=== PATIENT | female | born 1940 | race Caucasian/White ===

== ENCOUNTER → 2016-03-16 | Outpatient (CLI) | payer OTHER, BC | LOC: BHFA 10:00 | PROVIDERS: ATTEND Internal Medicine Interventional Cardiology | DX: R06.09 Other forms of dyspnea (principal); Z86.79 Personal history of other diseases of the circulatory system ==

== ENCOUNTER → 2016-04-18 | Outpatient (CLI) | payer OTHER, BC | LOC: BHFA 08:30 | PROVIDERS: ATTEND Internal Medicine Cardiovascular Disease | DX: R06.02 Shortness of breath (principal); R68.89 Other general symptoms and signs | CPT/HCPCS: 78452; 93017; A9500; J2785 ==

== ENCOUNTER → 2016-06-19 | Outpatient (CLI) | payer OTHER, BC ==
[~2016-06-19] MED LIST: IOPAMIDOL (ISOVUE 370) 100 ML BTL IV ONE
[2016-06-19 15:22] LABS: CREATININE 0.9 mg/dL (0.6-1.0); GLOMERULAR FILTRATION RATE > 60
== END ==
LOC: FIMAGING 14:38
PROVIDERS: ATTEND Internal Medicine Critical Care Medicine
DX: R06.02 Shortness of breath (principal)
CPT/HCPCS: 71275; Q9967

== ENCOUNTER 2017-07-07 19:01 | Observation (INO) | payer OTHER, BC ==
--- NOTE | 2017-07-07 19:13 | CPEKG ---
Heart Rate: 75 RR Interval: 800 P-R Interval: 196 QRSD Interval: 74 QT Interval: 420 QTC Interval: 470 P [place]: -54 QRS [place]: -15 T Wave [place]: 39 EKG Severity - OTHERWISE NORMAL ECG - EKG Impression: SINUS OR ECTOPIC ATRIAL RHYTHM EKG Impression: BORDERLINE LEFT AXIS DEVIATION Electronically Signed By: Haleigh Delcid 07-Jul-2017 23:14:02
[2017-07-07] MEDS ORDERED: NS 500 ML IV ONE (19:17)
[2017-07-07 19:30] LABS: PLATELET COUNT 188 10^3/uL (150-400)
[2017-07-07 19:42] LABS: CREATINE KINASE 85 IU/L (0-156)
--- NOTE | 2017-07-07 19:56 | EDPHY ---
H & P Time Seen by Provider: 07/07/17 19:16 HPI/ROS: HPI Lightheaded. 76-year-old female by private vehicle with her . This patient reports that she was watching TV earlier this afternoon at 4-5 p.m.. She reports that she noticed that she was feeling very lightheaded and faint. Denies vertigo. Reports that when she would try to stand and walk she would have problems with her balance and feel like she was going to faint. She had some mild nausea associated with this but no vomiting. Denies chest pain, palpitations, shortness of breath. No headache. No loss of sensation or weakness in her extremities. ROS: Constitutional: No fever, no chills. As above. Eyes: No discharge. No changes in vision. ENT: No sore throat. No nasal congestion or rhinorrhea. Respiratory: No cough. No shortness of breath. Cardiac: No chest pain, no palpitations. Gastrointestinal: No abdominal pain, no vomiting, no diarrhea. Genitourinary: No hematuria. No dysuria or increased frequency with urination. Musculoskeletal: No back pain. No neck pain. No myalgias or arthralgias. Skin: No rashes. Neurological: No headache. No focal weakness or altered sensation. Past medical history: Rheumatic heart disease, Kawasaki, ruptured appendicitis with appendectomy, inguinal hernia. Medications include estrogen replacement therapy and hydroxyzine. No new medications. Social history: Nonsmoker. Lives with her who is present in the emergency department. No alcohol. Physical Exam: General Appearance: Alert, no distress. This patient is responding to questions appropriately and in full sentences. This patient appears well- hydrated and well-nourished. Eyes: Pupils equal and round at 3-2 mm bilaterally, no pallor or injection. No lid edema, erythema or injection. No nystagmus. No photophobia. Respiratory: There are no retractions, lungs are clear to auscultation with good air movement bilaterally. Cardiovascular: Regular rate and rhythm. No murmur. Gastrointestinal: Abdomen is soft and nontender, no masses, bowel sounds normal. No focal tenderness at McBurney's point. No Morgan sign. Neurological: Motor sensory function is grossly intact. Cranial nerves are normal. Cerebellar function is intact. Skin: Warm and dry, no rashes. Musculoskeletal: Neck is supple and nontender. Extremities are symmetrical. All joints range without pain or impingement. Psychiatric: No agitation. No depression. Database: EKG: EKG time is 7:11 p.m.; EKG shows a narrow complex normal sinus rhythm with a ventricular rate of 75. The [place], QRS, QT intervals are within normal limits. Borderline left axis deviation. There are no ST-T wave changes indicative of ischemic or injury pattern. No evidence of right heart strain. Interpreted by me. Imaging: CT scan of head without contrast: Age-related changes only. No acute pathology. Results were discussed with staff radiologist Dr. Geronimo Neumann. CT angiogram of head and neck: Negative. Results were discussed with staff radiologist Dr. Geronimo Neumann. Procedures: Emergency department course: Triage vital signs reviewed. She is moderately hypertensive. Vital signs are otherwise normal. An IV was established. She was started on IV normal saline with 500 cc to be given over the next hour. EKG obtained and reviewed by myself. 8:45 p.m., the patient has returned from CT. We got her up to ambulate her. At this time her gait was ataxic. She would sometimes list to the left sometimes to the right. She again describes her feeling as being lightheaded. Her vital signs have remained normal. There is concern for possible cerebellar stroke. She was sent for CT angiogram of the head and the neck. The tree and shrub technician are not here at this time. Patient consents. 9:30 p.m., no change in the patient's neurologic status. Results of CT angiogram and plan for admission discussed with her and her . Hospitalist paged. 9:45 p.m., discussed case with hospitalist Dr. Marie. The patient is not a tPA candidate at this time. MRI will be deferred to hospitalist. The patient was admitted to the hospitalist service in stable condition. She was admitted to the neuro floor. Differential Diagnosis: The differential diagnosis on this patient includes but is not limited to dehydration, vasovagal near syncope, arrhythmia, central versus peripheral vertigo. This represents a partial list of diagnoses considered. These considerations are based on history, physical exam, past history, reassessment and diagnostic testing. Smoking Status: Never smoked Constitutional: Initial Vital Signs Temperature (C) 36.6 C 07/07/17 19:03 Heart Rate 80 07/07/17 19:03 Respiratory Rate 18 07/07/17 19:03 Blood Pressure 155/81 H 07/07/17 19:03 O2 Sat (%) 97 07/07/17 19:03 O2 Delivery Mode Room Air Allergies/Adverse Reactions: hydrocodone [Hydrocodone] Allergy (Unknown, Verified 07/07/17 19:05) CAUSES EXTREME DIURESIS oxycodone [Oxycodone] Allergy (Unknown, Verified 07/07/17 19:05) EXTREME DIURESIS prochlorperazine [Prochlorperazine] Allergy (Unknown, Verified 07/07/17 19:05) INC. HR ENLARGED PUPILS tramadol Allergy (Verified 07/07/17 19:05) Home Medications: Medication Instructions Recorded Estrogens, Conjugated [Premarin] 0.9 mg PO HS 07/07/17 Herbals/Supplements -Info Only 1 ea PO DAILY 07/07/17 hydrOXYzine HCL [hydrOXYzine HCL 25 mg PO HS 07/07/17 (RX)] medroxyPROGESTERone [Provera 10 mg 10 mg PO HS 07/07/17 (*)] Medical Decision Making - Data Points Laboratory Results: Laboratory Results 07/07/17 19:24 07/07/17 19:24 Medications Given: Hydroxyzine HCl (Hydroxyzine Hcl) 25 mg PO HS PRN PRN Reason: Sleep/Insomnia Stop: 01/03/18 23:27 Last Admin: 07/07/17 23:47 Dose: 25 mg Discontinued Medications Sodium Chloride (Ns) 500 mls @ 1,000 mls/hr IV EDNOW ONE PRN Reason: Protocol Stop: 07/07/17 19:46 Last Admin: 07/07/17 19:28 Dose: 500 mls Departure - Departure Disposition: [facility] Acute Clinical Impression: Lightheaded, Ataxia, Dehydration
[2017-07-07] MEDS ORDERED: IOPAMIDOL (ISOVUE 370) 100 ML BTL IV ONE (21:14)
[2017-07-07] MEDS ORDERED: ONDANSETRON DISINTEGRATING 4 MG TAB PO PRN (22:28)
[2017-07-07] MEDS ORDERED: ACETAMINOPHEN 325 MG TAB PO PRN (22:28)
[2017-07-07] MEDS ORDERED: ONDANSETRON 4 MG/2 ML VIAL IVP PRN (22:28)
[2017-07-07] MEDS ORDERED: hydrOXYzine HCL 25 MG TAB PO PRN (23:28)
--- NOTE | 2017-07-08 00:08 | PDGENHP ---
History and Physical - Chief Complaint Unsteady gait - History of Present Illness 76 yo F w/ hx of rheumatic heart disease p/w unsteady gait. Patient tells me she worked hard this morning mowing her lawn. Then this afternoon she was sitting in her house watching TV. When she stood up she noticed a significantly unsteady gait. This persisted for several hours so she presented to the ED. She denies other neurologic symptoms such as LOC, numbness, weakness, and visual disturbance. In the ED initial evaluation has been unremarkable, including CT, CTA head/neck. She is being admitted for monitoring, conclusion of stroke work- up, and PT/OT evaluations. History Information - Allergies/Home Medication List Allergies/Adverse Reactions: hydrocodone [Hydrocodone] Allergy (Unknown, Verified 07/07/17 19:05) CAUSES EXTREME DIURESIS oxycodone [Oxycodone] Allergy (Unknown, Verified 07/07/17 19:05) EXTREME DIURESIS prochlorperazine [Prochlorperazine] Allergy (Unknown, Verified 07/07/17 19:05) INC. HR ENLARGED PUPILS tramadol Allergy (Verified 07/07/17 19:05) Home Medications: Estrogens, Conjugated [Premarin] 0.9 mg PO HS 07/07/17 [Last Taken 07/06/17] Herbals/Supplements -Info Only 1 ea PO DAILY 07/07/17 [Last Taken Unknown] hydrOXYzine HCL [hydrOXYzine HCL (RX)] 25 mg PO HS 07/07/17 [Last Taken 07/06/17 ] medroxyPROGESTERone [Provera 10 mg (*)] 10 mg PO HS 07/07/17 [Last Taken ] I have personally reviewed and updated: family history, medical history - Past Medical History Additional medical history: Rheumatic heart disease - Surgical History Additional surgical history: Distant surgery to remove ruptured ovarian cyst. - Family History Additional family history: Asked, denies - Social History Smoking Status: Never smoked Alcohol Use: None Review of Systems Review of Systems: ROS: 10pt was reviewed & negative except for what was stated in HPI & below Physical Exam Physical Exam: Temp Pulse Resp BP Pulse Ox 36.6 C 80 20 147/71 H 97 07/07/17 19:03 07/07/17 23:05 07/07/17 23:05 07/07/17 23:05 07/07/17 23:05 Constitutional: no apparent distress, not in pain Eyes: PERRL, EOMI Ears, Nose, Mouth, Throat: moist mucous membranes, no oral mucosal ulcers Cardiovascular: regular rate and rhythym, systolic murmur Respiratory: no respiratory distress, clear to auscultation Gastrointestinal: normoactive bowel sounds, soft, non-tender abdomen Genitourinary: no bladder fullness, no bladder tenderness Skin: warm, normal color Neurologic: AAOx3, CN II-XII Intact, other (Finger to nose, heel to torres normal) , No weakness, No numbness, No facial droop Psychiatric: interacting appropriately, not anxious Lab Data & Imaging Review 07/07/17 19:24 07/07/17 19:24 WBC 5.79 10^3/uL (3.80-9.50) 07/07/17 19:24 RBC 3.73 10^6/uL (4.18-5.33) L 07/07/17 19:24 Hgb 11.7 g/dL (12.6-16.3) L 07/07/17 19:24 Hct 35.3 % (38.0-47.0) L 07/07/17 19:24 MCV 94.6 fL (81.5-99.8) 07/07/17 19:24 MCH 31.4 pg (27.9-34.1) 07/07/17 19:24 MCHC 33.1 g/dL (32.4-36.7) 07/07/17 19:24 RDW 13.5 % (11.5-15.2) 07/07/17 19:24 Plt Count 188 10^3/uL (150-400) 07/07/17 19:24 MPV 8.7 fL (8.7-11.7) 07/07/17 19:24 Neut % (Auto) 59.7 % (39.3-74.2) 07/07/17 19: Lymph % (Auto) 23.0 % (15.0-45.0) 07/07/17 19:24 Hall % (Auto) 10.5 % (4.5-13.0) 07/07/17 19:24 Eos % (Auto) 5.0 % (0.6-7.6) 07/07/17 19:24 Baso % (Auto) 1.6 % (0.3-1.7) 07/07/17 19:24 Nucleat RBC Rel Count 0.0 % (0.0-0.2) 07/07/17 19:24 Absolute Neuts (auto) 3.46 10^3/uL (1.70-6.50) 07/07/17 19:24 Absolute Lymphs (auto) 1.33 10^3/uL (1.00-3.00) 07/07/17 19:24 Absolute Monos (auto) 0.61 10^3/uL (0.30-0.80) 07/07/17 19:24 Absolute Eos (auto) 0.29 10^3/uL (0.03-0.40) 07/07/17 19:24 Absolute Basos (auto) 0.09 10^3/uL (0.02-0.10) 07/07/17 19: Absolute Nucleated RBC 0.00 10^3/uL (0-0.01) 07/07/17 19:24 Immature Gran % 0.2 % (0.0-1.1) 07/07/17 19:24 Immature Gran # 0.01 10^3/uL (0.00-0.10) 07/07/17 19:24 Sodium 138 mEq/L (135-145) 07/07/17 19:24 Potassium 3.6 mEq/L (3.3-5.0) 07/07/17 19:24 Chloride 108 mEq/L (97-110) 07/07/17 19:24 Carbon Dioxide 20 mEq/l (22-31) L 07/07/17 19:24 Anion Gap 10 mEq/L (8-16) 07/07/17 19:24 BUN 24 mg/dL (7-23) H 07/07/17 19:24 Creatinine 0.8 mg/dL (0.6-1.0) 07/07/17 19:24 Estimated GFR > 60 07/07/17 19:24 Glucose 127 mg/dL (70-100) H 07/07/17 19:24 Calcium 8.1 mg/dL (8.5-10.4) L 07/07/17 19:24 Creatine Kinase 85 IU/L (0-156) 07/07/17 19:24 CK-MB (CK-2) Fraction 1.50 ng/mL (0.00-3.19) 07/07/17 19:24 Troponin I < 0.012 ng/mL (0.000-0.034) 07/07/17 19:24 Imaging Review: Imaging Impressions Head CT 07/07/17 19:50 Impression: 1. Negative. No acute intracranial hemorrhage or evidence of acute ischemia. 2. White matter disease and atrophy are unchanged since January 2016. Findings discussed with Emergency Department physician, Dr. Haleigh Delcid on July 07, 2017 at 2054 hours. Head CTA 07/07/17 21:11 Impression: 1. Normal intracranial arterial circulation. No evidence of embolic disease or aneurysm. 2. Patent venous system. Results were communicated to Emergency Department physician, Haleigh Delcid MD at 07/07/2017 22:24. Neck CTA 07/07/17 21:11 Impression: Widely patent carotid and vertebral arteries. No flow-limiting stenosis, dissection or occlusion. Findings discussed with Emergency Department physician, Haleigh Delcid MD at 07/07/2017 22:24. Measurement of carotid stenosis is based on the residual internal carotid diameter with [place] Symptomatic Carotid Endarterectomy Trial (NASCET) based stenosis levels. Visualized and Interpreted EKG results: Yes EKG Interpretation: Positive for: normal sinsus rhythm Assessment & Plan Assessment: 76 yo F w/ rheumatic heart disease p/w unsteady gait. Plan: 1. Ataxia - Unclear etiology; acuity of onset and persistence of symptoms raised suspicion for posterior circulation stroke. Evaluation thus far for this has been negative but MRI and TTE remain. Noting she worked hard this morning mowing her lawn, dehydration and fatigue could also be contributing. She denies other neurologic symptoms at this time. - Admit for observation - MRI, TTE to finish stroke work-up - S/p 500 mL NS - Monitor on telemetry - PT/OT/ENERGY CONSERVATION DIRECTOR evaluations - Neurology consult placed - Discussed case w/ Dr. Delcid 2. Rheumatic heart disease - No acute complications from this. Diet - Regular pending swallow eval Code - Full Ppx - SCDs Dispo - Admit under observation status
[2017-07-08 05:33] LABS: PLATELET COUNT 222 10^3/uL (150-400)
--- NOTE | 2017-07-08 10:06 | NEUROPROG ---
Assessment: HOSPITAL NEUROLOGY CONSULT REQUESTING: Wilman Marie MD REASON: gait instability HPI: 76 year old right-handed woman with a history of rheumatic heart disease presented to our ED yesterday with lightheadedness and gait trouble. Patient states that yesterday morning she was doing some weeding in her yard and for a neighbor and then mowed her law. She states "I worked very hard pushing the mower around." She was rushing to beat the rain. She was feeling a bit overheated. She finished her yard work and then after having a rest she stood up and felt very lightheaded, like she was going to pass out. When she was walking around feeling lightheaded, she felt she was unsteady in her gait. She notes sitting down improved her symptoms. This was worrisome, so she asked a friend to drive her to the ED. She was not having any SOB, CP, palpitations. No focal/lateralizing neurologic signs/symptoms - no room-spinning, vision loss, double vision, weakness, sensory loss, speech/language changes. She was screened for cardiac ischemia in the ED with negative troponin and EKG without ischemic change. She was found to be dehydrated on labs with an elevated BUN/ Cr ratio. She was admitted for further evaluation and observation. She was hydrated with IVF and encouraged to increase PO intake. Her BUN/Cr ratio has now decreased and she feels back to baseline. ROS: As per the HPI, otherwise a complete 12 point ROS was performed and is negative ALLERGIES AND MEDS: As recorded in the EMR - reviewed and reconciled PFSH: As per the intake H&P by Dr. Marie from yesterday. EXAM: VS reviewed in EMR GEN: WDWN laying in NAD HEENT: NCAT, sclera anicteric, conjunctiva not injected, MMM, oropharynx clear, no scalp tenderness NECK: supple, nontender, no meningismus CV: RRR s1 s2 with systolic murmur best at LLSB. Carotid pulses 2+ wo bruit NEURO: MS: awake, alert, oriented to all spheres. She is a bit impulsive, getting up despite chair alarm and being connected to monitors, despite repeated warning of such. Speech nondysarthric. No language disturbance. Follows commands. Attends to both sides. Recent/remote memory grossly intact. Mood euthymic. Good fund of knowledge. CN: pupils 3mm round and reactive. Intolerant of fundoscopy. VFF. Primary gaze centered. Full ocular motility. Facial sensation preserved. Face symmetric. Hearing grossly intact to finger rub. Palatoglossal movements intact. Shoulder shrug and head turn strong. MOTOR: normal bulk/tone. Fine/fast resting tremor of both hands. Full power throughout. SENSORY: diminsihed vib/JPS in great toes, otherwise intact to all modalities. No extinction. COORD: no ataxia FN/HS. Jean-Pierre preserved. Romberg pos. REFLEX: plantars down. No clonus. Absent ankle jerks, other DTRS 1/4. GAIT: rises unassisted. Narrow base. Intact stride length/heel strike/toe lift /arm swing. Turns with 2 steps. Unable to tandem. DATA REVIEW: Labs reviewed in EMR PERSONALLY INTERPRETED RESULTS AND DATA: CT head wo - global volume loss and white matter signal attenuation consistent with chronic microvascular ischemia - nothing acute CTA head/neck - no stenotic lesions of the vessels IMPRESSION AND RECOMMENDATIONS: // PRESYNCOPE - RESOLVED // ORTHOSTATIC INTOLERANCE - RESOLVED // DEHYDRATION - RESOLVED Patient with orthostatic lightheadedness and resultant gait instability after working in her yard all morning with lab evidence of dehydration. Symptoms have resolved with hydration overnight. Clinical picture is consistent with orthostatic hypotension from dehydration. No focal/lateralizing signs/ symptoms. Neuro exam without focal deficit today. Recommend continued hydration measures. Further medical management per primary team. I don't see an indication for MRI - I don't suspect this was from a primary neurologic/central/ischemic process. PT/OT for home safety/gait safety. She can be discharged from a neuro perspective and follow up with PCP for further monitoring of hydration status and BP/orthostatic vitals. Objective: Vital Signs Temp Pulse Resp BP Pulse Ox 37.1 C 91 20 139/83 H 99 07/08/17 07:49 07/08/17 07:49 07/08/17 07:49 07/08/17 07:49 07/08/17 07:49 Laboratory Results 07/08/17 04:50 07/08/17 04:50 07/07/17 07/08/17 07/09/17 05:59 05:59 05:59 Intake Total 700 Output Total 500 Balance 200 Allergies/Adverse Reactions: hydrocodone [Hydrocodone] Allergy (Unknown, Verified 07/07/17 19:05) CAUSES EXTREME DIURESIS oxycodone [Oxycodone] Allergy (Unknown, Verified 07/07/17 19:05) EXTREME DIURESIS prochlorperazine [Prochlorperazine] Allergy (Unknown, Verified 07/07/17 19:05) INC. HR ENLARGED PUPILS tramadol Allergy (Verified 07/07/17 19:05)
[2017-07-08 11:36] VITALS: BP 136/76
--- NOTE | 2017-07-08 12:18 | ECHO ---
[email or web address] [address] [address] Main: [phone] Fax: Transthoracic Echocardiogram Name: TYSON BROWN MR#: [id number] Study Date: 07/08/2017 Study Time: 09:17 AM Date of : 1940 Age: 76 year(s) Height: 162.6 cm (64 in.) Weight: 46.27 kg (102 lb.) BSA: 1.47 m2 Gender: Female Examination: Echo Indication: ATAXIA, ?STROKE Image Quality: Adequate Contrast: Requested by: Wilman De Leon BP: / Heart Rate: Rhythm: Indication: ATAXIA, ?STROKE Procedure Staff Critical Care Physician: Kendal Smith RDCS Reading Physician: Chapin Eisenberg MD Requesting Provider: Conclusions: Normal size left ventricle. EF is 65 %. No regional wall motion abnormality. Diastolic dysfunction is present. . Mild mitral valve regurgitation is present. Mild tricuspid regurgitation is present. The pulmonary artery pressure is normal. Measurements: Chambers Valvular Assessment AV/MV Valvular Assessment TV/PV Normal Normal Normal Name Value Range Name Value Range Name Value Range Ao Gita (2D): 2.7 cm (1.4 cm-2.6 AV Vmax: 1.40 m/s (1 m/s-1.7 TR Vmax: 2.50 mm/s ( - ) cm) m/s) TR PGmax: 25 mmHg ( - ) IVSd (2D): 1.2 cm (0.6 cm-1.1 AV meanP mmHg ( - ) syst. PAP: 30 mmHg ( - ) cm) ELISHA (VTI): 1.9 cm ( - ) PV Vmax: 1.09 m/s (0.6 m/s-0.9 LVDd (2D): 3.2 cm (3.9 cm-5.3 MV E Vmax: 0.52 m/s ( - ) m/s) cm) MV A Vmax: 0.95 m/s ( - ) PV PGmax: 5 mmHg ( - ) LVDs (2D): 2.0 cm (2.1 cm-4 MV E/A: 0.55 ( - ) cm) MV PHT: 0.080 s ( - ) LVPWd (2D): 1.2 cm ( - ) MVA (PHT): 2.8 s ( - ) LVOTd 1.8 cm 1.8 cm mm LVEF (BP): 65 % (>=55 %) RVDd(2D): 2.8 cm (1.9 cm-3.8 cmmm) Continued Measurements: Chambers Valvular Assessment AV/MV Valvular Assessment TV/PV Name Value Name Value Name Value Patient: TYSON BROWN Study Date: 07/08/2017 Page 1 of 2 09:17 AM LADs: 3.2 cm MV DecTime: 257 m/s CVP (est.): 5 mmHg LADs Lon.3 cm MV E' Septal: 0.07 m/s LA Area: 13.2 cm2 MV E/E' Septal: 7.20 LA Volume: 31 ml MV E/E' Lateral: 5.10 LA Volume Index: 21.1 ml/m2 RA Area: 12.5 cm2 Additional Vessels Name Value Ao Ascendin.9 cm Inferior Vena Cava: 0.8 cm Findings: Left Ventricle: Normal size left ventricle. No LV hypertrophy. Normal global systolic LV function. EF is 65 %. No regional wall motion abnormality. Diastolic dysfunction is present. . Right Ventricle: Normal size right ventricle. Normal RV function. Left Atrium: The left atrium is normal in size. Right Atrium: The right atrium is normal in size. Mitral Valve: The mitral valve is normal in appearance and function. Mild mitral valve regurgitation is present. No mitral stenosis is present. Aortic Valve: The aortic valve is tri-leaflet. There is no significant aortic valve regurgitation. No aortic valve stenosis is present. Tricuspid Valve: The tricuspid valve is normal in appearance and function. Mild tricuspid regurgitation is present. The pulmonary artery pressure is normal. Right ventricular systolic pressure measures 30mmHg. Pulmonic Valve: The pulmonic valve is normal in appearance and function. There is no pulmonic regurgitation seen. Aorta: The aorta is normal. Normal size aortic root measuring 2.7 cm. Normal size ascending aorta measuring 2.9 cm. IVC: The IVC is normal sized. Pericardium: No pericardial effusion. No pleural effusion. (No Signature Object) Patient: TYSON BROWN Study Date: 07/08/2017 Page 2 of 2 09:17 AM [id number]
--- NOTE | 2017-07-08 13:22 | GDS ---
[f rep st] DISCHARGE SUMMARY DISCHARGE DIAGNOSES: 1. Ataxia. 2. Dehydration. 3. History of rheumatic heart disease. HISTORY OF PRESENT ILLNESS: A 76-year-old female with a history of rheumatic heart disease, presenting with an unsteady gait. She worked very hard in the ER early yesterday morning, pulling weeds and then mowing her lawn. She did have a full breakfast, but a light lunch. In the afternoon she was sitting in her house. When she stood, she noticed a significantly unsteady gait and dizziness. This lasted for several hours, so her friend advised her to come to the ED. She denies any focal weakness, numbness, slurred speech, or visual changes. In the ER, she had a negative CT, CTA head/neck. HOSPITAL COURSE BY PROBLEM: 1. Ataxia: due to the dehydration. Her symptoms resolved this morning with hydration overnight. She does not have any focal neuro findings. She was evaluated by Neurology. They do not think an MRI is indicated. She had an echocardiogram with normal EF, diastolic heart failure, but no significant valvular disorder. Troponin, EKG were negative for ischemia. PT evaluated her , and she was at her baseline. 2. Rheumatic heart disease, stable. DISPOSITION: Patient is stable for discharge home. MEDICATIONS: No new medications. PHYSICAL EXAM: VITAL SIGNS: 37.3, blood pressure 136/76, heart rate in the 70s , respirations 14, 100% on room air. GENERAL: She is well appearing, smiling, sitting in bed in no acute distress. HEENT: PERRLA. EOMI. Oropharynx clear. CV: Regular rate and rhythm. No murmurs, gallops, or rubs. LUNGS: Clear. ABDOMEN: Soft, nontender. NEURO: 2-12 intact. No pronator drift. No facial droop. Normal sensation to touch. Gait is slow, but steady with me this morning. PSYCH: Alert and oriented x3. TIME SPENT ON DISCHARGE: Greater than 35 minutes, evaluating patient, reviewing imaging, and coordinating discharge plan. /[id number]/[id number] MTDD
--- NOTE | 2017-07-08 14:24 | ASDISCHSUM ---
Discharge Information Plan Status:Home with No Needs Medically Cleared to Leave:07/08/2017 Discharge Date:07/08/2017 01:48 PM CM D/C Disposition:Home, Routine, Self-Care ADT D/C Disposition:Home, Routine, Self-Care Projected Discharge Date:07/08/2017 01:48 PM Transportation at D/C: Discharge Delay Reason: Follow-Up Date:07/08/2017 01:48 PM Discharge Slot: Final Diagnosis: Placement Information Patient Contact Information Contact Name:JENNIFER Relationship:Friend Address:[address] [place] [address] Work Phone: City:[place] [facility] Phone: [facility]/Zip Code:[place] [address] Email: Financial Information Financial Class:Medicare Primary Plan Desc:MEDICARE INPATIENT Primary Plan Number:[id number] Secondary Plan Desc:[facility] Secondary Plan Number:[id number] Assessment Information Case Management Discharge Plan Note Case Management Discharge Discharge Order Complete? Answers: Yes Patient to Obtain Answers: Independently Medications Transportation Arranged Answers: Family/Friends Discharge Comments Notes: Pt was admitted for near syncope, ataxia. Neurology has seen and cleared for d/c. Pt is discharging home today with no CM needs. She has been here less than 24 hours. Date Signed: 07/08/2017 02:22 PM Electronically Signed By:NOELLE Aranda LACE LACE Length of stay for Answers: Less than 1 day current admission Acuity / Level of Answers: No Care: Did the patient have an inpatient admission? Date Signed: 07/08/2017 02:23 PM Electronically Signed By:NOELLE Aranda Intervention Information
== END 2017-07-08 13:48 | disposition home or self-care (01) ==
LOC: INTOOBSV 21:28 → F3N 23:06
PROVIDERS: ADMIT Student in an Organized Health Care Education/Training Program; ATTEND Internal Medicine
DX: E86.0 Dehydration (principal); I95.1 Orthostatic hypotension; I09.9 Rheumatic heart disease, unspecified; I50.30 Unspecified diastolic (congestive) heart failure
CPT/HCPCS: 70450; 70496; 70498; 93005; 93306; 97161; G0378; G8978; G8979; G8980; Q9967

== ENCOUNTER 2018-02-24 10:49 | Emergency (ER) | payer OTHER, BC ==
--- NOTE | 2018-02-24 12:42 | EDPHY ---
H & P Stated Complaint: ACUTE REPRODUCEABLE PAIN UNDER R BREAST SATURDAY WHILE SHOVELING SNOW Time Seen by Provider: 02/24/18 11:48 HPI/ROS: CHIEF COMPLAINT: Right-sided chest pain HISTORY OF PRESENT ILLNESS: 77-year-old female presents with right-sided chest pain. Onset of right-sided chest pain while shoveling 3 days ago. The chest pain is mild and constant, increases with deep inspiration and with movement. The pain is alleviated by sitting still. No shortness of breath or other associated symptoms. 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, polio - Social History Smoking Status: Never smoked Alcohol Use: Sober Drug Use: None - Physical Exam Exam: General Appearance: Alert, pleasant Eyes: Pupils equal and round, no conjunctival pallor ENT, Mouth: Mucous membranes moist Neck: Normal inspection Respiratory: Right anterior chest wall tenderness over the lower ribs, Lungs are clear to auscultation Cardiovascular: Regular rate and rhythm Gastrointestinal: Abdomen is soft and nontender Neurological: A&O, nonfocal, normal gait Skin: Warm and dry, no rash Extremities: Normal inspection Psychiatric: Mood and affect normal Constitutional: Initial Vital Signs Temperature (C) 36.7 C 02/24/18 10:57 Heart Rate 84 02/24/18 10:57 Respiratory Rate 17 02/24/18 10:57 Blood Pressure 161/85 H 02/24/18 10:57 O2 Sat (%) 97 02/24/18 10:57 O2 Delivery Mode Room Air Allergies/Adverse Reactions: hydrocodone [Hydrocodone] Allergy (Unknown, Verified 02/24/18 10:57) CAUSES EXTREME DIURESIS oxycodone [Oxycodone] Allergy (Unknown, Verified 02/24/18 10:57) EXTREME DIURESIS prochlorperazine [Prochlorperazine] Allergy (Unknown, Verified 02/24/18 10:57) INC. HR ENLARGED PUPILS tramadol Allergy (Verified 02/24/18 10:57) Home Medications: Medication Instructions Recorded Estrogens, Conjugated [PREMARIN] 0.9 mg PO HS 07/07/17 Herbals/Supplements -Info Only 1 ea PO DAILY 07/07/17 hydrOXYzine HCL [hydrOXYzine HCL 25 mg PO HS 07/07/17 (RX)] medroxyPROGESTERone [Provera 10 mg 10 mg PO HS 07/07/17 (*)] Medical Decision Making - Diagnostics EKG Interpretation: EKG interpreted by me reveals normal sinus rhythm, rate 74, PVC, borderline LAD. Interpretation: Otherwise normal EKG Imaging Results: Imaging Impressions Chest X-Ray 02/24/18 11:35 Impression: No evidence for acute cardiopulmonary abnormality. Chronic findings as above. Imaging: Discussed imaging studies w/ scallop binder Radiologist ED Course/Re-evaluation: This patient presents with right-sided chest pain while shoveling. History and physical exam consistent with musculoskeletal injury. Stat EKG reveals no evidence of ischemia or dysrhythmia. Chest x-ray is unremarkable. I encouraged the patient to use Tylenol or ibuprofen for pain control. Warning signs discussed. Differential Diagnosis: Differential diagnosis includes though it is not limited to pneumonia, pneumothorax, pulmonary embolism, aortic dissection, pericarditis, acute coronary syndrome. Departure - Departure Disposition: Home, Routine, Self-Care Clinical Impression: Right-sided chest wall pain Condition: Good Instructions: Chest Wall Pain (ED) Additional Instructions: Tylenol 650 mg every 4 hr as needed for pain. Use ice every 1-2 hours for pain control. Referrals: Adilson Chew MD [Primary Care Provider] - As per Instructions
[2018-02-24 12:53] VITALS: BP 142/83
--- NOTE | 2018-02-24 15:40 | CPEKG ---
Test Reason : OPEN Blood Pressure : / mmHG Vent. Rate : 074 BPM Atrial Rate : 074 BPM P-R Int : 178 ms QRS Dur : 070 ms QT Int : 385 ms P-R-T Axes : 006 -24 047 degrees QTc Int : 428 ms Sinus rhythm Ventricular premature complex Borderline left axis deviation Confirmed by Aida Gandhi ([id number]) on 02/24/2018 3:39:53 PM Referred By: Confirmed By:Aida Gandhi
== END 2018-02-24 13:08 | disposition home or self-care (01) ==
DX: R07.89 Other chest pain (principal); I09.9 Rheumatic heart disease, unspecified; X50.0XXA Overexertion from strenuous movement or load, initial encounter; Y93.H1 Activity, digging, shoveling and raking; Y92.007 Garden or yard of unspecified non-institutional (private) residence as the place of occurrence of the external cause